=== PATIENT | female | born 1935 | race Caucasian/White ===

== ENCOUNTER → 2018-11-20 07:26 | Outpatient (CLI) | payer MEDICARE, SELFPAY ==
[2018-11-20 09:37] LABS: Cholesterol 135 mg/dL (140-199); HDL Cholesterol 54 mg/dL (40-60); LDL Cholesterol Calculated 56 mg/dL (<100); Triglycerides 124 mg/dL (35-150)
== END ==
PROVIDERS: PCP Family Medicine; Visit Provider Family Medicine
DX: E78.5 Hyperlipidemia, unspecified (principal)
CPT/HCPCS: 36415; 80061